=== PATIENT | female | born 1960 | race Caucasian/White ===

== ENCOUNTER → 2017-04-02 | Emergency (ER) | payer MEDICARE, MEDICAID ==
[~2017-04-02] VITALS: Ht 167.6 cm; Wt 79.4 kg
[~2017-04-02] MED LIST: ALBU6.7H INH; CEPH-572 PO; COU4T PO; DIPH14SO3 TP; FAMO-1 PO; GUAI1TBM19 PO; HYDR-3965 PO; HYDROmorphone 1 mg/ml syringe IV PRN; LISI40TA4 PO; NORCO10T PO; ONDA4TAB9 PO; PANT40TA39 PO; normal saline 1000ML IV soln IVB ONE; ondansetron/PF 4mg/2ml inj IV ONE
[2017-04-02 10:04] LABS: BASOPHILS % (AUTO) 0.3 % (0-1); EOSINOPHILS # (AUTO) 0.2 X10'3 (0-0.9); EOSINOPHILS % (AUTO) 2.8 % (0-6); HEMOGLOBIN 13.7 g/dl (12.0-16.0); LYMPHOCYTES # (AUTO) 2.1 X10'3 (1.1-4.8); LYMPHOCYTES % (AUTO) 27.6 % (21-51); MEAN CORPUSCULAR HEMOGLOBIN 29.5 PG (27.0-31.0); MEAN CORPUSCULAR HGB CONC 34.3 % (33.0-36.5); MEAN CORPUSCULAR VOLUME 85.9 FL (78-98); MEAN PLATELET VOLUME 7.8 FL (7.4-10.4); MONOCYTES # (AUTO) 0.6 X10'3 (0-0.9); MONOCYTES % (AUTO) 7.4 % (2-12); NEUTROPHILS # (AUTO) 4.8 X10'3 (1.8-7.7); NEUTROPHILS % (AUTO) 61.9 % (42-75); PLATELET COUNT 222 X10'3 (140-440); RED BLOOD COUNT 4.65 X10'6 (4.20-5.60); WHITE BLOOD COUNT 7.7 X10'3 (4.5-11.0)
[2017-04-02 10:10] LABS: CLARITY,URINE TURBID (Clear); COLOR,URINE STRAW (Yellow); GLUCOSE, URINE NEGATIVE (Neg); KETONES,URINE NEGATIVE (Neg); LEUKOCYTE ESTERASE ,URINE MODERATE (Neg); NITRITES, URINE NEGATIVE (Neg); OCCULT BLOOD,URINE TRACE-INTACT (Neg); PROTEIN,URINE NEGATIVE (Neg); UROBILINOGEN,URINE 0.2 E.U/dL (0.2-1.0)
[2017-04-02 10:14] LABS: UA COLLECTION TYPE CLN CATCH MIDSTREAM
[2017-04-02 10:18] LABS: SQUAMOUS EPITHELIAL CELL,UR MANY /LPF (FEW)
[2017-04-02 10:19] LABS: MUCUS STRANDS FEW /LPF (Neg); TRANSITIONAL EPI CELLS,URINE MODERATE /HPF
[2017-04-02 10:21] LABS: BACTERIA,URINE FEW /HPF (Neg); RBC,URINE 0-2 /HPF (0-2); WBC,URINE 0-4 /HPF (0-4)
[2017-04-02 10:26] LABS: INR 1.5 INR; PROTHROMBIN TIME 15.8 SECONDS (9.0-12.0)
[2017-04-02 10:27] LABS: ALANINE AMINOTRANSFERASE 35 U/L (12-78); ALBUMIN 3.8 G/DL (3.4-5.0); ALBUMIN/GLOBULIN RATIO 1.1 (1.1-1.5); ALKALINE PHOSPHATASE 112 IU/L (46-116); ANION GAP 7 (8-16); ASPARTATE AMINO TRANSFERASE 20 U/L (10-37); BILIRUBIN,TOTAL 0.8 MG/DL (0.1-1.0); BLOOD UREA NITROGEN 24 MG/DL (7-18); BUN/CREATININE RATIO 34.3 (6.6-38.0); CALCIUM 9.4 MG/DL (8.5-10.1); CHLORIDE 105 MMOL/L (99-107); GLUCOSE 100 MG/DL (70-104); POTASSIUM 4.7 MMOL/L (3.5-5.1); SODIUM 141 MMOL/L (135-145); TOTAL CARBON DIOXIDE 28.6 MMOL/L (24-32); TOTAL PROTEIN 7.3 G/DL (6.4-8.2); eGFR 87 ML/MIN
[2017-04-02 10:35] LABS: LIPASE 168 U/L (73-393)
[2017-04-02 11:37] VITALS: BP 144/86
== END | disposition home or self-care (01) ==
LOC: ER 09:29
DX: N39.0 Urinary tract infection, site not specified (principal); R51 Headache; G89.29 Other chronic pain; I10 Essential (primary) hypertension; J45.909 Unspecified asthma, uncomplicated; Z87.442 Personal history of urinary calculi; Z86.711 Personal history of pulmonary embolism; Z79.01 Long term (current) use of anticoagulants; Z79.899 Other long term (current) drug therapy
CPT/HCPCS: 36415; 74176; 80053; 81001; 83690; 85025; 85610; 96361; 96374; 96375; 99285; J1170; J2405; J7030

== ENCOUNTER 2017-05-13 11:38 | Emergency (ER) | payer MEDICARE, MEDICAID ==
[~2017-05-13] VITALS: Ht 160 cm; Wt 78.2 kg
[~2017-05-13 11:38] MED LIST changes: -CEPH-572 PO; -HYDR-3965 PO; -HYDROmorphone 1 mg/ml syringe IV PRN; -ONDA4TAB9 PO; -normal saline 1000ML IV soln IVB ONE; -ondansetron/PF 4mg/2ml inj IV ONE
[2017-05-13 12:57] LABS: PROTHROMBIN TIME 10.4 SECONDS (9.0-12.0)
[2017-05-13 14:21] LABS: BASOPHILS % (AUTO) 0.4 % (0-1); EOSINOPHILS # (AUTO) 0.2 X10'3 (0-0.9); EOSINOPHILS % (AUTO) 2.4 % (0-6); HEMATOCRIT 39.3 % (35.0-45.0); HEMOGLOBIN 13.9 g/dl (12.0-16.0); LYMPHOCYTES # (AUTO) 2.3 X10'3 (1.1-4.8); LYMPHOCYTES % (AUTO) 29.1 % (21-51); MEAN CORPUSCULAR HEMOGLOBIN 29.7 PG (27.0-31.0); MEAN CORPUSCULAR HGB CONC 35.5 % (33.0-36.5); MEAN CORPUSCULAR VOLUME 83.9 FL (78-98); MEAN PLATELET VOLUME 8.2 FL (7.4-10.4); MONOCYTES # (AUTO) 0.4 X10'3 (0-0.9); MONOCYTES % (AUTO) 5.3 % (2-12); NEUTROPHILS # (AUTO) 4.9 X10'3 (1.8-7.7); NEUTROPHILS % (AUTO) 62.8 % (42-75); PLATELET COUNT 242 X10'3 (140-440); RED BLOOD COUNT 4.68 X10'6 (4.20-5.60); RED CELL DISTRIBUTION WIDTH 13.2 % (11.5-14.5); WHITE BLOOD COUNT 7.7 X10'3 (4.5-11.0)
[2017-05-13 14:38] LABS: ALANINE AMINOTRANSFERASE 30 U/L (12-78); ALBUMIN/GLOBULIN RATIO 1.2 (1.1-1.5); ALKALINE PHOSPHATASE 92 IU/L (46-116); ANION GAP 9 (8-16); ASPARTATE AMINO TRANSFERASE 24 U/L (10-37); BILIRUBIN,TOTAL 0.3 MG/DL (0.1-1.0); BLOOD UREA NITROGEN 15 MG/DL (7-18); BUN/CREATININE RATIO 18.8 (6.6-38.0); CHLORIDE 105 MMOL/L (99-107); GLUCOSE 107 MG/DL (70-104); MAGNESIUM 1.9 MG/DL (1.5-2.4); POTASSIUM 4.3 MMOL/L (3.5-5.1); SODIUM 141 MMOL/L (135-145); TOTAL CARBON DIOXIDE 27.5 MMOL/L (24-32); TOTAL PROTEIN 7.3 G/DL (6.4-8.2); eGFR 74 ML/MIN
[2017-05-13] MEDS ORDERED: MORP-64 PO (15:11)
[2017-05-13] MEDS ORDERED: OMEP20CA10 PO (15:15)
[2017-05-13] MEDS ORDERED: AMOX500C2 PO (15:16)
[2017-05-13] MEDS ORDERED: CLAR500T PO (15:16)
[2017-05-13] MEDS ORDERED: LEVO125T PO (15:20)
[2017-05-13] MEDS ORDERED: iohexol 350MG/ML 100ml bottle IV ONE (15:25)
[2017-05-13 17:44] VITALS: BP 134/87
== END 2017-05-13 17:45 | disposition home or self-care (01) ==
LOC: ER 11:38
DX: R06.00 Dyspnea, unspecified (principal); R79.1 Abnormal coagulation profile; I10 Essential (primary) hypertension; J45.909 Unspecified asthma, uncomplicated; Z86.711 Personal history of pulmonary embolism; Z79.01 Long term (current) use of anticoagulants; Z91.018 Allergy to other foods; Z79.899 Other long term (current) drug therapy
CPT/HCPCS: 36415; 71275; 80053; 83735; 83880; 84484; 85025; 85610; 93005; 99285; J7030; Q9967

== ENCOUNTER 2017-07-12 13:06 | Emergency (ER) | payer MEDICARE, MEDICAID ==
[~2017-07-12 13:06] MED LIST changes: +AMOX500C2 PO; +CLAR500T PO; -DIPH14SO3 TP; -FAMO-1 PO; -GUAI1TBM19 PO; +LEVO125T PO; +MORP-64 PO; -NORCO10T PO; +OMEP20CA10 PO; -PANT40TA39 PO
== END 2017-07-12 14:14 | disposition left against medical advice (07) ==
LOC: ER 13:07
DX: D68.9 Coagulation defect, unspecified (principal); Z53.21 Procedure and treatment not carried out due to patient leaving prior to being seen by health care provider

== ENCOUNTER 2017-09-16 14:31 | Emergency (ER) | payer MEDICARE, MEDICAID ==
[~2017-09-16] VITALS: Ht 162.6 cm; Wt 72.4 kg
[2017-09-16 15:21] LABS: UA COLLECTION TYPE CLN CATCH MIDSTREAM
[2017-09-16 15:22] LABS: CLARITY,URINE SLIGHTLY CLOUDY (Clear); COLOR,URINE YELLOW (Yellow); GLUCOSE, URINE NEGATIVE (Neg); KETONES,URINE NEGATIVE (Neg); LEUKOCYTE ESTERASE ,URINE NEGATIVE (Neg); NITRITES, URINE NEGATIVE (Neg); OCCULT BLOOD,URINE NEGATIVE (Neg); PH,URINE 5.5 (4.8-8.0); PROTEIN,URINE NEGATIVE (Neg); UROBILINOGEN,URINE 0.2 E.U/dL (0.2-1.0)
[2017-09-16 15:32] LABS: BASOPHILS % (AUTO) 0.4 % (0-1); EOSINOPHILS # (AUTO) 0.2 X10'3 (0-0.9); EOSINOPHILS % (AUTO) 2.5 % (0-6); HEMATOCRIT 39.8 % (35.0-45.0); HEMOGLOBIN 14.1 g/dl (12.0-16.0); LYMPHOCYTES # (AUTO) 2.5 X10'3 (1.1-4.8); LYMPHOCYTES % (AUTO) 27.5 % (21-51); MEAN CORPUSCULAR HEMOGLOBIN 29.5 PG (27.0-31.0); MEAN CORPUSCULAR HGB CONC 35.5 % (33.0-36.5); MEAN CORPUSCULAR VOLUME 83.2 FL (78-98); MEAN PLATELET VOLUME 7.9 FL (7.4-10.4); MONOCYTES # (AUTO) 0.5 X10'3 (0-0.9); MONOCYTES % (AUTO) 6.1 % (2-12); NEUTROPHILS # (AUTO) 5.7 X10'3 (1.8-7.7); NEUTROPHILS % (AUTO) 63.5 % (42-75); PLATELET COUNT 252 X10'3 (140-440); RED BLOOD COUNT 4.78 X10'6 (4.20-5.60); RED CELL DISTRIBUTION WIDTH 13.2 % (11.5-14.5)
[2017-09-16 15:33] LABS: BACTERIA,URINE NONE SEEN /HPF (Neg); RBC,URINE NONE SEEN /HPF (0-2); SQUAMOUS EPITHELIAL CELL,UR FEW /LPF (FEW); WBC,URINE 0-4 /HPF (0-4)
[2017-09-16 15:34] LABS: MUCUS STRANDS MODERATE /LPF (Neg)
[2017-09-16 15:48] LABS: ALANINE AMINOTRANSFERASE 27 U/L (12-78); ALBUMIN 3.7 G/DL (3.4-5.0); ALKALINE PHOSPHATASE 88 IU/L (46-116); ANION GAP 7 (8-16); ASPARTATE AMINO TRANSFERASE 22 U/L (10-37); BILIRUBIN,TOTAL 0.2 MG/DL (0.1-1.0); BLOOD UREA NITROGEN 17 MG/DL (7-18); BUN/CREATININE RATIO 13.3 (6.6-38.0); CALCIUM 9.6 MG/DL (8.5-10.1); CHLORIDE 102 MMOL/L (99-107); CREATININE 1.28 MG/DL (0.40-0.90); GLUCOSE 107 MG/DL (70-104); POTASSIUM 4.1 MMOL/L (3.5-5.1); SODIUM 140 MMOL/L (135-145); TOTAL CARBON DIOXIDE 31.5 MMOL/L (24-32); TOTAL PROTEIN 7.3 G/DL (6.4-8.2); eGFR 43 ML/MIN
[2017-09-16 16:13] VITALS: BP 174/98
== END 2017-09-16 16:19 | disposition home or self-care (01) ==
LOC: ER 14:31
DX: R10.32 Left lower quadrant pain (principal); R59.1 Generalized enlarged lymph nodes; I10 Essential (primary) hypertension; J45.909 Unspecified asthma, uncomplicated; Z86.14 Personal history of Methicillin resistant Staphylococcus aureus infection; Z86.711 Personal history of pulmonary embolism; Z98.890 Other specified postprocedural states; Z79.899 Other long term (current) drug therapy
CPT/HCPCS: 36415; 74176; 80053; 81001; 85025; 99285

== ENCOUNTER 2018-10-05 11:29 | Emergency (ER) | payer MEDICARE, MEDICAID ==
[~2018-10-05] VITALS: Ht 160 cm; Wt 81.5 kg
[~2018-10-05 11:29] MED LIST changes: -OMEP20CA10 PO; +OMEP20CA11 PO
[2018-10-05 11:46] VITALS: BP 122/85
[2018-10-05 12:39] LABS: CLARITY,URINE CLEAR (Clear); COLOR,URINE YELLOW (Yellow); GLUCOSE, URINE NEGATIVE (Neg); KETONES,URINE NEGATIVE (Neg); LEUKOCYTE ESTERASE ,URINE NEGATIVE (Neg); NITRITES, URINE NEGATIVE (Neg); OCCULT BLOOD,URINE NEGATIVE (Neg); PROTEIN,URINE TRACE mg/dl (Neg)
[2018-10-05 12:41] LABS: UA COLLECTION TYPE CLN CATCH MIDSTREAM
[2018-10-05 12:55] LABS: MUCUS STRANDS MANY /LPF (Neg); SQUAMOUS EPITHELIAL CELL,UR MODERATE /LPF (FEW)
[2018-10-05 12:57] LABS: BACTERIA,URINE FEW /HPF (Neg); RBC,URINE 0-2 /HPF (0-2); WBC,URINE 0-4 /HPF (0-4)
[2018-10-05 13:14] LABS: BASOPHILS % (AUTO) 0.5 % (0-1); EOSINOPHILS # (AUTO) 0.2 X10'3 (0-0.9); EOSINOPHILS % (AUTO) 2.3 % (0-6); HEMATOCRIT 39.9 % (35.0-45.0); HEMOGLOBIN 13.9 g/dl (12.0-16.0); LYMPHOCYTES # (AUTO) 2.8 X10'3 (1.1-4.8); LYMPHOCYTES % (AUTO) 31.4 % (21-51); MEAN CORPUSCULAR HEMOGLOBIN 29.9 PG (27.0-31.0); MEAN CORPUSCULAR HGB CONC 34.7 g/dL (33.0-36.5); MEAN CORPUSCULAR VOLUME 86.2 FL (78-98); MEAN PLATELET VOLUME 8.5 FL (7.4-10.4); MONOCYTES # (AUTO) 0.8 X10'3 (0-0.9); MONOCYTES % (AUTO) 8.5 % (2-12); NEUTROPHILS # (AUTO) 5.1 X10'3 (1.8-7.7); NEUTROPHILS % (AUTO) 57.3 % (42-75); PLATELET COUNT 225 X10'3 (140-440); RED BLOOD COUNT 4.63 X10'6 (4.20-5.60); WHITE BLOOD COUNT 8.9 X10'3 (4.5-11.0)
[2018-10-05 13:19] LABS: ALANINE AMINOTRANSFERASE 31 U/L (12-78); ALBUMIN 3.9 G/DL (3.4-5.0); ALBUMIN/GLOBULIN RATIO 1.1 (1.1-1.5); ALKALINE PHOSPHATASE 94 IU/L (46-116); ANION GAP 6 (8-16); ASPARTATE AMINO TRANSFERASE 19 U/L (10-37); BILIRUBIN,TOTAL 0.4 MG/DL (0.1-1.0); BLOOD UREA NITROGEN 18 MG/DL (7-18); BUN/CREATININE RATIO 23.4 (6.6-38.0); CALCIUM 9.3 MG/DL (8.5-10.1); CHLORIDE 104 MMOL/L (99-107); CREATININE 0.77 MG/DL (0.40-0.90); GLUCOSE 93 MG/DL (70-104); LIPASE 316 U/L (73-393); POTASSIUM 3.8 MMOL/L (3.5-5.1); SODIUM 139 MMOL/L (135-145); TOTAL CARBON DIOXIDE 29.2 MMOL/L (24-32); TOTAL PROTEIN 7.3 G/DL (6.4-8.2); eGFR 77 ML/MIN
[2018-10-05] MEDS ORDERED: ACYC400T PO (13:40)
[2018-10-05] MEDS ORDERED: ONDA4TAB12 PO (13:40)
--- NOTE | 2018-10-05 13:52 | NUR ---
PT DISCHARGED BEFORE ASSESSMENT FULLY COMPLETE, MD WAS IN ROOM SPEAKING WITH PT
== END 2018-10-05 13:55 | disposition home or self-care (01) ==
LOC: ER 11:29
DX: B00.1 Herpesviral vesicular dermatitis (principal); R53.83 Other fatigue; R11.2 Nausea with vomiting, unspecified; I10 Essential (primary) hypertension; J45.909 Unspecified asthma, uncomplicated; F41.9 Anxiety disorder, unspecified; F32.9 Major depressive disorder, single episode, unspecified; Z98.890 Other specified postprocedural states; Z79.2 Long term (current) use of antibiotics; Z86.711 Personal history of pulmonary embolism; Z86.14 Personal history of Methicillin resistant Staphylococcus aureus infection; Z79.01 Long term (current) use of anticoagulants
CPT/HCPCS: 36415; 80053; 81001; 83690; 85025; 99283

== ENCOUNTER 2018-12-20 06:05 | Emergency (ER) | payer MEDICARE, MEDICAID ==
[~2018-12-20] VITALS: Ht 162.6 cm; Wt 81.8 kg
[~2018-12-20 06:05] MED LIST changes: -ALBU6.7H INH; +ALBU6.7H9 INH; -MORP-64 PO; +MORP-92 PO; +ONDA4TAB12 PO
[2018-12-20] MEDS ORDERED: dexamethasone 4mg tablet PO ONE (06:55)
[2018-12-20 07:16] VITALS: BP 146/96
== END 2018-12-20 07:18 | disposition home or self-care (01) ==
LOC: ER 06:05
DX: J02.9 Acute pharyngitis, unspecified (principal); I10 Essential (primary) hypertension; J45.909 Unspecified asthma, uncomplicated; Z86.711 Personal history of pulmonary embolism; Z86.14 Personal history of Methicillin resistant Staphylococcus aureus infection; Z98.890 Other specified postprocedural states; Z91.018 Allergy to other foods; Z79.899 Other long term (current) drug therapy; Z79.01 Long term (current) use of anticoagulants
CPT/HCPCS: 87081; 87880; 99283

== ENCOUNTER 2018-12-26 11:16 | Emergency (ER) | payer MEDICARE, MEDICAID ==
[~2018-12-26] VITALS: Ht 162.6 cm; Wt 80.4 kg
[2018-12-26 11:28] VITALS: BP 130/95
== END 2018-12-26 13:57 | disposition left against medical advice (07) ==
LOC: ER 11:17
DX: R51 Headache (principal); M54.2 Cervicalgia; Z53.21 Procedure and treatment not carried out due to patient leaving prior to being seen by health care provider

== ENCOUNTER 2019-12-31 10:39 | Emergency (ER) | payer MEDICARE, MEDICAID ==
[~2019-12-31] VITALS: Ht 162.6 cm; Wt 90.6 kg
[~2019-12-31 10:39] MED LIST changes: +CLAR-69 PO; -CLAR500T PO; -OMEP20CA11 PO; +OMEP20CA15 PO
[2019-12-31 11:22] VITALS: BP 190/109
--- NOTE | 2019-12-31 11:23 | NUR ---
Patient resting comfortably
[2019-12-31] MEDS ORDERED: CLOT21CR4 VG (12:05)
[2019-12-31] MEDS ORDERED: AMOX1TAB87 PO (12:05)
[2019-12-31] MEDS ORDERED: LORA10TA65 PO (12:05)
== END 2019-12-31 12:38 | disposition home or self-care (01) ==
LOC: ER 10:42
DX: T78.49XA Other allergy, initial encounter (principal); J01.00 Acute maxillary sinusitis, unspecified; R05 Cough; J02.9 Acute pharyngitis, unspecified; R51.9 Headache, unspecified; I10 Essential (primary) hypertension; J45.909 Unspecified asthma, uncomplicated; F41.9 Anxiety disorder, unspecified; F32.9 Major depressive disorder, single episode, unspecified; Z87.01 Personal history of pneumonia (recurrent); Z86.711 Personal history of pulmonary embolism; Z86.14 Personal history of Methicillin resistant Staphylococcus aureus infection; Z98.890 Other specified postprocedural states; Z72.89 Other problems related to lifestyle; Z79.2 Long term (current) use of antibiotics; Z79.899 Other long term (current) drug therapy; X08.8XXA Exposure to other specified smoke, fire and flames, initial encounter
CPT/HCPCS: 99283

== ENCOUNTER 2020-04-30 01:54 | Emergency (ER) | payer MEDICARE, MEDICAID ==
[~2020-04-30] VITALS: Ht 162.6 cm; Wt 87.3 kg
[~2020-04-30 01:54] MED LIST changes: +CLOT21CR4 VG; +LORA10TA65 PO
[2020-04-30] MEDS ORDERED: ketorolac tromethamine 15mg/ml inj. IM ONE (02:25)
[2020-04-30] MEDS ORDERED: dexamethasone 4mg tablet PO ONE (02:25)
[2020-04-30] MEDS ORDERED: PRED20TA PO (03:21)
[2020-04-30] MEDS ORDERED: DIAZ-351 PO (03:21)
[2020-04-30] MEDS ORDERED: METH-360 PO (03:21)
[2020-04-30 03:40] VITALS: BP 153/92
== END 2020-04-30 03:40 | disposition home or self-care (01) ==
LOC: ER 01:54
DX: S39.012A Strain of muscle, fascia and tendon of lower back, initial encounter (principal); M54.41 Lumbago with sciatica, right side; I10 Essential (primary) hypertension; J45.909 Unspecified asthma, uncomplicated; F41.9 Anxiety disorder, unspecified; F32.9 Major depressive disorder, single episode, unspecified; Z86.711 Personal history of pulmonary embolism; Z87.01 Personal history of pneumonia (recurrent); Z98.890 Other specified postprocedural states; Z72.89 Other problems related to lifestyle; Z79.2 Long term (current) use of antibiotics; Z79.899 Other long term (current) drug therapy; X58.XXXA Exposure to other specified factors, initial encounter; Y93.89 Activity, other specified; Y92.89 Other specified places as the place of occurrence of the external cause; Y99.8 Other external cause status
CPT/HCPCS: 96372; 99283; J1885

== ENCOUNTER → 2020-06-25 | Emergency (ER) | payer MEDICARE, MEDICAID ==
[~2020-06-25] MED LIST changes: +DIAZ-351 PO; +LISI40TA13 PO; -LISI40TA4 PO; +METH-360 PO
== END | disposition left against medical advice (07) ==
LOC: ER 18:38
DX: M54.9 Dorsalgia, unspecified (principal); Z53.21 Procedure and treatment not carried out due to patient leaving prior to being seen by health care provider

== ENCOUNTER 2020-08-03 11:52 | Emergency (ER) | payer MEDICARE, MEDICAID ==
[~2020-08-03] VITALS: Ht 162.6 cm; Wt 83.6 kg
[2020-08-03 12:10] VITALS: BP 169/102
[2020-08-03] MEDS ORDERED: ondansetron 4mg rapidly disintigrating tab PO ONE (12:45)
[2020-08-03 13:17] LABS: BASOPHILS % (AUTO) 0.6 % (0-1); EOSINOPHILS # (AUTO) 0.2 X10'3 (0-0.9); EOSINOPHILS % (AUTO) 2.6 % (0-6); HEMATOCRIT 43.5 % (35.0-45.0); HEMOGLOBIN 14.7 g/dl (12.0-16.0); LYMPHOCYTES % (AUTO) 30.5 % (21-51); MEAN CORPUSCULAR HEMOGLOBIN 29.6 PG (27.0-31.0); MEAN CORPUSCULAR HGB CONC 33.8 g/dL (33.0-36.5); MEAN CORPUSCULAR VOLUME 87.7 FL (78-98); MEAN PLATELET VOLUME 7.7 FL (7.4-10.4); MONOCYTES # (AUTO) 0.5 X10'3 (0-0.9); MONOCYTES % (AUTO) 6.9 % (2-12); NEUTROPHILS % (AUTO) 59.4 % (42-75); PLATELET COUNT 272 X10'3 (140-440); RED BLOOD COUNT 4.97 X10'6 (4.20-5.60); RED CELL DISTRIBUTION WIDTH 13.8 % (11.5-14.5); WHITE BLOOD COUNT 6.7 X10'3 (4.5-11.0)
[2020-08-03 13:32] LABS: ALANINE AMINOTRANSFERASE 40 U/L (12-78); ALBUMIN 4.1 G/DL (3.4-5.0); ALBUMIN/GLOBULIN RATIO 1.1 (1.1-1.5); ALKALINE PHOSPHATASE 112 IU/L (46-116); ANION GAP 6 (8-16); ASPARTATE AMINO TRANSFERASE 28 U/L (10-37); BILIRUBIN,TOTAL 0.6 MG/DL (0.1-1.0); BLOOD UREA NITROGEN 15 MG/DL (7-18); CALCIUM 9.6 MG/DL (8.5-10.1); CHLORIDE 105 MMOL/L (99-107); CREATININE 0.79 MG/DL (0.40-0.90); GLUCOSE 121 MG/DL (70-104); LIPASE 116 U/L (73-393); POTASSIUM 3.9 MMOL/L (3.5-5.1); SODIUM 140 MMOL/L (135-145); TOTAL CARBON DIOXIDE 28.8 MMOL/L (24-32); TOTAL PROTEIN 7.8 G/DL (6.4-8.2); eGFR 74 ML/MIN
[2020-08-03] MEDS ORDERED: acetaminophen 325mg tablet PO ONE (13:50)
== END 2020-08-03 14:57 | disposition home or self-care (01) ==
LOC: ER 11:54
DX: B34.9 Viral infection, unspecified (principal); Z20.822 Contact with and (suspected) exposure to COVID-19; R51.9 Headache, unspecified; R06.02 Shortness of breath; R11.2 Nausea with vomiting, unspecified; I10 Essential (primary) hypertension; J45.909 Unspecified asthma, uncomplicated; F41.9 Anxiety disorder, unspecified; F32.9 Major depressive disorder, single episode, unspecified; Z86.14 Personal history of Methicillin resistant Staphylococcus aureus infection; Z86.711 Personal history of pulmonary embolism; Z72.89 Other problems related to lifestyle; Z98.890 Other specified postprocedural states; Z79.899 Other long term (current) drug therapy
CPT/HCPCS: 36415; 80053; 83690; 85025; 87635; 93005; 99284; C9803

== ENCOUNTER 2020-09-01 16:39 | Emergency (ER) | payer MEDICARE, MEDICAID ==
[~2020-09-01] VITALS: Ht 160 cm; Wt 89.5 kg
[2020-09-01 17:04] LABS: BASOPHILS # (AUTO) 0.1 X10'3 (0-0.2); BASOPHILS % (AUTO) 0.7 % (0-1); EOSINOPHILS # (AUTO) 0.4 X10'3 (0-0.9); EOSINOPHILS % (AUTO) 5.7 % (0-6); HEMATOCRIT 43.4 % (35.0-45.0); HEMOGLOBIN 14.9 g/dl (12.0-16.0); LYMPHOCYTES % (AUTO) 27.6 % (21-51); MEAN CORPUSCULAR HEMOGLOBIN 30.1 PG (27.0-31.0); MEAN CORPUSCULAR HGB CONC 34.4 g/dL (33.0-36.5); MEAN CORPUSCULAR VOLUME 87.7 FL (78-98); MEAN PLATELET VOLUME 7.7 FL (7.4-10.4); MONOCYTES # (AUTO) 0.5 X10'3 (0-0.9); MONOCYTES % (AUTO) 6.7 % (2-12); NEUTROPHILS # (AUTO) 4.3 X10'3 (1.8-7.7); NEUTROPHILS % (AUTO) 59.3 % (42-75); PLATELET COUNT 232 X10'3 (140-440); RED BLOOD COUNT 4.95 X10'6 (4.20-5.60); RED CELL DISTRIBUTION WIDTH 13.6 % (11.5-14.5); WHITE BLOOD COUNT 7.2 X10'3 (4.5-11.0)
[2020-09-01 17:27] LABS: ALANINE AMINOTRANSFERASE 27 U/L (12-78); ALBUMIN 4.3 G/DL (3.4-5.0); ALBUMIN/GLOBULIN RATIO 1.2 (1.1-1.5); ALKALINE PHOSPHATASE 117 IU/L (46-116); ANION GAP 9 (8-16); ASPARTATE AMINO TRANSFERASE 22 U/L (10-37); BILIRUBIN,TOTAL 0.6 MG/DL (0.1-1.0); BLOOD UREA NITROGEN 18 MG/DL (7-18); BUN/CREATININE RATIO 23.7 (6.6-38.0); CALCIUM 9.7 MG/DL (8.5-10.1); CHLORIDE 103 MMOL/L (99-107); CREATININE 0.76 MG/DL (0.40-0.90); GLUCOSE 159 MG/DL (70-104); POTASSIUM 4.1 MMOL/L (3.5-5.1); SODIUM 140 MMOL/L (135-145); TOTAL CARBON DIOXIDE 28.1 MMOL/L (24-32); eGFR 78 ML/MIN
[2020-09-01] MEDS ORDERED: cloNIDine 0.1 mg tablet PO ONE (18:00)
[2020-09-01] MEDS ORDERED: lisinopril 10 MG tablet PO ONE (18:10)
[2020-09-01] MEDS ORDERED: HYDROchlorothiazide 25mg tablet PO ONE (18:10)
[2020-09-01 18:19] LABS: CLARITY,URINE CLOUDY (Clear); COLOR,URINE YELLOW (Yellow); GLUCOSE, URINE NEGATIVE (Neg); KETONES,URINE NEGATIVE (Neg); LEUKOCYTE ESTERASE ,URINE NEGATIVE (Neg); NITRITES, URINE NEGATIVE (Neg); OCCULT BLOOD,URINE TRACE-INTACT (Neg); PH,URINE 5.5 (4.8-8.0); PROTEIN,URINE TRACE mg/dl (Neg)
[2020-09-01] MEDS ORDERED: LISI-640 PO (18:23)
[2020-09-01 18:24] LABS: UA COLLECTION TYPE CLN CATCH MIDSTREAM
[2020-09-01 18:25] LABS: MUCUS STRANDS FEW /LPF (Neg); SQUAMOUS EPITHELIAL CELL,UR FEW /LPF (FEW)
[2020-09-01 18:26] LABS: CAL OXALATE CRYSTALS 4+ /HPF (NEGATIVE)
[2020-09-01 18:27] LABS: BACTERIA,URINE 2+ /HPF (Neg); RBC,URINE 0-2 /HPF (0-2)
[2020-09-01 18:46] VITALS: BP 195/127
== END 2020-09-01 18:48 | disposition home or self-care (01) ==
LOC: ER 16:40
DX: I10 Essential (primary) hypertension (principal); J45.909 Unspecified asthma, uncomplicated; F41.9 Anxiety disorder, unspecified; F32.9 Major depressive disorder, single episode, unspecified; Z91.018 Allergy to other foods; Z79.899 Other long term (current) drug therapy
CPT/HCPCS: 36415; 71045; 80053; 81001; 83880; 84484; 85025; 87088; 93005; 99285

== ENCOUNTER 2020-11-10 10:40 | Emergency (ER) | payer MEDICARE, MEDICAID ==
[~2020-11-10] VITALS: Ht 162.6 cm; Wt 83.2 kg
[~2020-11-10 10:40] MED LIST changes: +LISI-640 PO
[2020-11-10 11:25] VITALS: BP 147/80
== END 2020-11-10 12:45 | disposition home or self-care (01) ==
LOC: ER 10:41
DX: J02.9 Acute pharyngitis, unspecified (principal); Z20.822 Contact with and (suspected) exposure to COVID-19; R51.9 Headache, unspecified; R50.9 Fever, unspecified; R11.0 Nausea; R53.83 Other fatigue; R05 Cough; I10 Essential (primary) hypertension; J45.909 Unspecified asthma, uncomplicated; F41.9 Anxiety disorder, unspecified; F32.9 Major depressive disorder, single episode, unspecified; Z87.01 Personal history of pneumonia (recurrent); Z86.711 Personal history of pulmonary embolism; Z98.890 Other specified postprocedural states; Z72.89 Other problems related to lifestyle; Z79.2 Long term (current) use of antibiotics; Z79.899 Other long term (current) drug therapy
CPT/HCPCS: 87635; 99283; C9803

== ENCOUNTER 2021-01-13 18:34 | Emergency (ER) | payer MEDICARE, MEDICAID ==
[~2021-01-13] VITALS: Ht 162.6 cm; Wt 83.6 kg
[2021-01-13 18:45] VITALS: BP 138/106
--- NOTE | 2021-01-13 19:56 | NUR ---
Pt stated "I think I'm going to leave because I only came because I lost my taste and smell. I will go thru the drive thru testing site by [place] in the morning." Pt then walked away. RN notified.
== END 2021-01-13 20:05 | disposition left against medical advice (07) ==
LOC: ER 18:34
DX: R05.9 Cough, unspecified (principal); Z53.21 Procedure and treatment not carried out due to patient leaving prior to being seen by health care provider

== ENCOUNTER 2021-06-01 15:17 | Emergency (ER) | payer MEDICARE, MEDICAID ==
[~2021-06-01] VITALS: Ht 160 cm; Wt 86.4 kg
[2021-06-01] MEDS ORDERED: hydrALAZINE 20mg/ml inj. IV ONE (15:35)
[2021-06-01] MEDS ORDERED: normal saline 1000ml 1,000 ML IV ONE (15:35)
[2021-06-01] MEDS ORDERED: metoclopramide 5 mg/ml inj IV ONE (15:35)
[2021-06-01 16:00] LABS: BASOPHILS % (AUTO) 0.6 % (0-1); EOSINOPHILS # (AUTO) 0.3 X10'3 (0-0.9); HEMATOCRIT 40.7 % (35.0-45.0); HEMOGLOBIN 13.9 g/dl (12.0-16.0); LYMPHOCYTES # (AUTO) 2.8 X10'3 (1.1-4.8); LYMPHOCYTES % (AUTO) 33.2 % (21-51); MEAN CORPUSCULAR HEMOGLOBIN 29.8 PG (27.0-31.0); MEAN CORPUSCULAR HGB CONC 34.2 g/dL (33.0-36.5); MEAN CORPUSCULAR VOLUME 86.9 FL (78-98); MEAN PLATELET VOLUME 7.7 FL (7.4-10.4); MONOCYTES # (AUTO) 0.6 X10'3 (0-0.9); MONOCYTES % (AUTO) 7.1 % (2-12); NEUTROPHILS # (AUTO) 4.7 X10'3 (1.8-7.7); NEUTROPHILS % (AUTO) 56.1 % (42-75); PLATELET COUNT 254 X10'3 (140-440); RED BLOOD COUNT 4.68 X10'6 (4.20-5.60); RED CELL DISTRIBUTION WIDTH 13.8 % (11.5-14.5); WHITE BLOOD COUNT 8.4 X10'3 (4.5-11.0)
[2021-06-01] MEDS ORDERED: ketorolac tromethamine 15mg/ml inj. IV ONE (16:15)
[2021-06-01] MEDS ORDERED: acetaminophen 325mg tablet PO ONE (16:15)
[2021-06-01 16:20] LABS: ALANINE AMINOTRANSFERASE 58 U/L (12-78); ALBUMIN 4.6 G/DL (3.4-5.0); ALBUMIN/GLOBULIN RATIO 1.3 (1.1-1.5); ALKALINE PHOSPHATASE 106 IU/L (46-116); ANION GAP 15 (8-16); ASPARTATE AMINO TRANSFERASE 36 U/L (10-37); BILIRUBIN,TOTAL 0.9 MG/DL (0.1-1.0); BLOOD UREA NITROGEN 17 MG/DL (7-18); BUN/CREATININE RATIO 18.3 (6.6-38.0); CALCIUM 9.6 MG/DL (8.5-10.1); CHLORIDE 102 MMOL/L (99-107); CREATININE 0.93 MG/DL (0.40-0.90); GLUCOSE 135 MG/DL (70-104); POTASSIUM 4.4 MMOL/L (3.5-5.1); SODIUM 141 MMOL/L (135-145); TOTAL CARBON DIOXIDE 24.4 MMOL/L (24-32); TOTAL PROTEIN 8.2 G/DL (6.4-8.2); eGFR 61 ML/MIN
[2021-06-01 16:49] LABS: CLARITY,URINE CLEAR (Clear); COLOR,URINE YELLOW (Yellow); GLUCOSE, URINE NEGATIVE (Neg); KETONES,URINE NEGATIVE (Neg); LEUKOCYTE ESTERASE ,URINE NEGATIVE (Neg); NITRITES, URINE NEGATIVE (Neg); OCCULT BLOOD,URINE NEGATIVE (Neg); PROTEIN,URINE NEGATIVE (Neg); UROBILINOGEN,URINE 0.2 E.U/dL (0.2-1.0)
[2021-06-01 16:52] LABS: UA COLLECTION TYPE VOIDED
[2021-06-01 17:41] VITALS: BP 166/89
== END 2021-06-01 17:43 | disposition home or self-care (01) ==
LOC: ER 15:18
DX: R11.0 Nausea (principal); R07.89 Other chest pain; I10 Essential (primary) hypertension; H57.11 Ocular pain, right eye; R51.9 Headache, unspecified; J45.909 Unspecified asthma, uncomplicated; F41.9 Anxiety disorder, unspecified; F32.A Depression, unspecified; Z87.01 Personal history of pneumonia (recurrent); Z86.711 Personal history of pulmonary embolism; Z86.14 Personal history of Methicillin resistant Staphylococcus aureus infection; Z98.890 Other specified postprocedural states; Z72.89 Other problems related to lifestyle; Z79.2 Long term (current) use of antibiotics; Z79.899 Other long term (current) drug therapy
CPT/HCPCS: 36415; 70450; 71045; 80053; 81003; 84145; 84439; 84443; 84484; 85025; 85651; 93005; 96361; 96374; 96375; 99285; J0360; J1885; J2765; J7030

== ENCOUNTER 2022-05-26 17:34 | Emergency (ER) | payer MEDICARE, MEDICAID ==
[~2022-05-26] VITALS: Ht 162.6 cm; Wt 85.9 kg
[~2022-05-26 17:34] MED LIST changes: +ALBU6.7H14 INH; -ALBU6.7H9 INH
[2022-05-26 18:26] LABS: CLARITY,URINE SLIGHTLY CLOUDY (Clear); COLOR,URINE YELLOW (Yellow); GLUCOSE, URINE >=1000 mg/dl (Neg); KETONES,URINE NEGATIVE (Neg); LEUKOCYTE ESTERASE ,URINE NEGATIVE (Neg); NITRITES, URINE NEGATIVE (Neg); OCCULT BLOOD,URINE NEGATIVE (Neg); PH,URINE 6.5 (4.8-8.0); PROTEIN,URINE NEGATIVE (Neg); UROBILINOGEN,URINE 0.2 E.U/dL (0.2-1.0)
[2022-05-26 18:36] LABS: BASOPHILS % (AUTO) 0.5 % (0-1); EOSINOPHILS # (AUTO) 0.2 X10'3 (0-0.9); HEMATOCRIT 36.1 % (35.0-45.0); HEMOGLOBIN 12.4 g/dl (12.0-16.0); LYMPHOCYTES # (AUTO) 2.8 X10'3 (1.1-4.8); LYMPHOCYTES % (AUTO) 30.5 % (21-51); MEAN CORPUSCULAR HEMOGLOBIN 29.8 PG (27.0-31.0); MEAN CORPUSCULAR HGB CONC 34.2 g/dL (33.0-36.5); MEAN PLATELET VOLUME 8.4 FL (7.4-10.4); MONOCYTES # (AUTO) 0.7 X10'3 (0-0.9); MONOCYTES % (AUTO) 8.1 % (2-12); NEUTROPHILS # (AUTO) 5.4 X10'3 (1.8-7.7); NEUTROPHILS % (AUTO) 58.9 % (42-75); PLATELET COUNT 192 X10'3 (140-440); RED BLOOD COUNT 4.15 X10'6 (4.20-5.60); RED CELL DISTRIBUTION WIDTH 12.7 % (11.5-14.5); WHITE BLOOD COUNT 9.1 X10'3 (4.5-11.0)
[2022-05-26 18:38] LABS: UA COLLECTION TYPE CLN CATCH MIDSTREAM
[2022-05-26 18:39] LABS: MUCUS STRANDS MODERATE /LPF (Neg); RBC,URINE 0-2 /HPF (0-2); SQUAMOUS EPITHELIAL CELL,UR FEW /LPF (FEW)
[2022-05-26 18:40] LABS: BACTERIA,URINE 1+ /HPF (Neg); TRANSITIONAL EPI CELLS,URINE FEW /HPF; WBC CLUMPS,URINE FEW /HPF (NEGATIVE)
[2022-05-26 18:53] LABS: ALANINE AMINOTRANSFERASE 25 U/L (12-78); ALBUMIN 3.8 G/DL (3.4-5.0); ALBUMIN/GLOBULIN RATIO 1.1 (1.1-1.5); ALKALINE PHOSPHATASE 81 IU/L (46-116); ANION GAP 3 (8-16); ASPARTATE AMINO TRANSFERASE 13 U/L (10-37); BILIRUBIN,TOTAL 0.4 MG/DL (0.1-1.0); BLOOD UREA NITROGEN 16 MG/DL (7-18); BUN/CREATININE RATIO 19.3 (6.6-38.0); CALCIUM 9.9 MG/DL (8.5-10.1); CHLORIDE 105 MMOL/L (99-107); CREATININE 0.83 MG/DL (0.40-0.90); GLUCOSE 247 MG/DL (70-104); LIPASE 118 U/L (73-393); POTASSIUM 4.4 MMOL/L (3.5-5.1); SODIUM 140 MMOL/L (135-145); TOTAL CARBON DIOXIDE 31.9 MMOL/L (24-32); TOTAL PROTEIN 7.4 G/DL (6.4-8.2); eGFR 70 ML/MIN
[2022-05-26 18:56] VITALS: BP 177/96
[2022-05-26] MEDS ORDERED: SULF1TAB49 PO (19:47)
== END 2022-05-26 19:58 | disposition home or self-care (01) ==
LOC: ER 17:34
DX: N39.0 Urinary tract infection, site not specified (principal); M54.41 Lumbago with sciatica, right side; I10 Essential (primary) hypertension; E03.9 Hypothyroidism, unspecified; F31.9 Bipolar disorder, unspecified; Z86.14 Personal history of Methicillin resistant Staphylococcus aureus infection; Z91.010 Allergy to peanuts; Z79.899 Other long term (current) drug therapy; Z79.1 Long term (current) use of non-steroidal anti-inflammatories (NSAID); Z79.2 Long term (current) use of antibiotics
CPT/HCPCS: 36415; 80053; 81001; 83690; 85025; 85610; 86885; 86900; 86901; 87077; 87088; 87186; 99283

== ENCOUNTER 2023-06-25 15:00 | Emergency (ER) | payer MEDICARE, MEDICAID ==
[~2023-06-25] VITALS: Ht 172.7 cm; Wt 86.4 kg
[2023-06-25 15:03] VITALS: BP 177/71; PULSE 74; RESP 18; TEMP 99.1; O2SAT 97
== END 2023-06-25 16:34 | disposition home or self-care (01) ==
LOC: ER 15:00
DX: S80.02XA Contusion of left knee, initial encounter (principal); S63.502A Unspecified sprain of left wrist, initial encounter; X58.XXXA Exposure to other specified factors, initial encounter; Y93.89 Activity, other specified; Y92.89 Other specified places as the place of occurrence of the external cause; Y99.8 Other external cause status
CPT/HCPCS: 29125; 73110; 73564; 99284

== ENCOUNTER 2024-08-31 11:37 | Emergency (ER) | payer MEDICARE, MEDICAID ==
[~2024-08-31] VITALS: Ht 162.6 cm; Wt 77.3 kg
[~2024-08-31 11:37] MED LIST changes: +ONDA-243 PO; -ONDA4TAB12 PO
--- NOTE | 2024-08-31 11:53 | ELECTROCARDIOGRAPH REPORT ---
[facility] Test Date: 2024-08-31 Test Time: 11:49:39 Pat Name: RENAN BARBOSA Department: [facility] Patient ID: [facility]-[id number] Room: Gender: F [employer]: : [id number] Requested By: PADMINI OCHOA Order Number: [id number] Reading MD: Measurements Intervals [place] Rate: 58 P: 49 NV: 180 QRS: -14 QRSD: 89 T: 52 QT: 417 QTc: 410 Interpretive Statements Sinus bradycardia Consider anterior infarct Baseline wander in lead(s) II,III,aVF Please click the below link to view image of tracing.
[2024-08-31 12:12] LABS: BASOPHILS % (AUTO) 0.8 % (0-1); EOSINOPHILS # (AUTO) 0.2 X10'3 (0-0.9); EOSINOPHILS % (AUTO) 4.6 % (0-6); HEMATOCRIT 40.6 % (35.0-45.0); HEMOGLOBIN 14.1 g/dl (12.0-16.0); LYMPHOCYTES # (AUTO) 1.7 X10'3 (1.1-4.8); LYMPHOCYTES % (AUTO) 31.9 % (21-51); MEAN CORPUSCULAR HEMOGLOBIN 29.5 PG (27.0-31.0); MEAN CORPUSCULAR HGB CONC 34.6 g/dL (33.0-36.5); MEAN CORPUSCULAR VOLUME 85.1 FL (78-98); MEAN PLATELET VOLUME 8.3 FL (7.4-10.4); MONOCYTES # (AUTO) 0.6 X10'3 (0-0.9); MONOCYTES % (AUTO) 10.9 % (2-12); NEUTROPHILS # (AUTO) 2.8 X10'3 (1.8-7.7); NEUTROPHILS % (AUTO) 51.8 % (42-75); PLATELET COUNT 212 X10'3 (140-440); RED BLOOD COUNT 4.76 X10'6 (4.20-5.60); RED CELL DISTRIBUTION WIDTH 13.4 % (11.5-14.5); WHITE BLOOD COUNT 5.4 X10'3 (4.5-11.0)
[2024-08-31 12:15] VITALS: TEMP 98.4
--- NOTE | 2024-08-31 12:26 | RADIOLOGY REPORT ---
CHEST RADIOGRAPH Indication: CP Technique: Single frontal view of the chest was obtained COMPARISON: CHEST,SINGLE VIEW on DOS: 06/01/21, CHEST,SINGLE VIEW on DOS: 09/01/20 FINDINGS: Lines and Tubes: None Lungs: Few linear airspace opacities at the left lower lung zone, similar to prior. Pleura: No definite pleural effusion or pneumothorax. Cardiomediastinal contours: Unremarkable Bones: Similar curvilinear opacity in the left midlung zone which may be related to sclerosis of the left anterior 3rd rib. Osseous degenerative changes. IMPRESSION: 1. No acute cardiopulmonary abnormality. 2. Similar left basilar subsegmental scarring or atelectasis.
[2024-08-31 12:33] LABS: ALBUMIN 3.9 G/DL (3.4-5.0); ANION GAP 8 (8-16); BLOOD UREA NITROGEN 17 MG/DL (7-18); BUN/CREATININE RATIO 19.8 (10.0-20.0); CHLORIDE 108 MMOL/L (99-107); CREATININE 0.86 MG/DL (0.40-0.90); GLUCOSE 116 MG/DL (70-104); PRO BRAIN NATRIURETIC PEPTIDE 32 PG/ML (0-125); SODIUM 142 MMOL/L (135-145); TOTAL CARBON DIOXIDE 25.8 MMOL/L (24-32); eCRCL 57 ML/MIN; eGFR 66 ML/MIN
[2024-08-31 12:36] LABS: POTASSIUM 4.7 MMOL/L (3.5-5.1)
--- NOTE | 2024-08-31 13:30 | Physician Documentation ---
History of Present Illness ~ Chief Complaint: Breast pain Stated Complaint: MRSA/PNEUMONIA RULE OUT Time Seen by MD: 12:36 Primary Medical Doctor: SUZANNE VARGAS Source: patient (15) HPI Patient comes in for evaluation of a rash under her left breast. She has been undergoing radiation therapy for about three weeks for breast cancer, and reports that since about five days ago she has had irritation under the left breast. She was not sure if she had scratched it, or if her puppy had given her an infection. she has had MRSA pneumonia before and was concerned about infection. She reports that this morning she noted some green drainage and so she was concerned and wanted to come in. She has been feeling unwell with the radiation, but does not know if she has had a fever, as she did not take her temperature. She is afebrile today and did not take any antipyretics prior to arrival. Tetanus within 5 Years?: No Allergies: Uncoded Allergies: NUTS (Allergy, Severe, swelling hives, 07/18/13) Active Prescriptions See Medication Reconciliation Form. Medication Reconciliation Scheduled Albuterol Sulfate (Proventil Hfa), 2 PUFFS INH Q6H Amoxicillin Trihydrate (Amoxicillin), 2 CAP PO BID, (Reported) Clarithromycin (Clarithromycin), 1 TABLET PO BID, (Reported) Clotrimazole (Gyne-Lotrimin), 1 APPLICATOR VG HS Levothyroxine Sodium (Synthroid), 1 TAB PO DAILY, (Reported) Lisinopril* (Lisinopril*), 40 MG PO DAILY, (Reported) Lisinopril/Hydrochlorothiazide (Zestoretic 20-12.5 Tablet), 1 TAB PO DAILY Loratadine (Claritin), 1 TAB PO DAILY Methocarbamol (Robaxin-750), 1 TAB PO Q8H Morphine Sulfate (Morphine Sulfate Er), 15 MG PO BID, (Reported) Omeprazole (Omeprazole), 1 CAP PO BID, (Reported) Warfarin Sodium* (Coumadin*), 8 MG PO DAILY, (Reported) Scheduled PRN Diazepam (Diazepam), 5 MG PO q8h prn PRN for muscle spasms ONDANSETRON ODT 4mg tablet (Ondansetron Odt), 1 TABLET PO Q6H PRN for nausea/vomiting Past Medical History Past Medical History: Hypertension, Asthma, Bronchitis, Pneumonia, Pulmonary Embolism, Diabetes, Thyroid (unspecified), MRSA Abscess, Breast Cancer, Anxiety, Depression Past Surgical History: orthopedic surgeries, other Other Past Surgical History: lung surgery Smoking Status: Never smoker Alcohol Use: Occasionally Drug Use: none Lives with: Other Lives In: Home Occupation: employed Review of Systems All Other Systems at this time: Reviewed and Negative Physical Exam Vital Signs: Temperature: 98.4, Source: Temporal, Heart Rate: 61, Respiratory Rate: 15, BP: 159/74, Pulse Oximetry: 96, Weight: 77.270 Oxygen Flow Rate: 0 Physical Exam General: Pt is awake, alert, oriented x4 in no acute distress and well appearing. Head: Normocephalic and atraumatic. Eyes: Conjunctiva normal. ENT: Mucous membranes moist. Neck: Supple. Extremities: Within normal limits without cyanosis, clubbing, or edema. Skin: [place], warm and dry. In the left inframammary fold the patient has a bit of skin breakdown and some moisture, without any erythema to suggest cellulitis. There is no wound per se, from which I would expect any purulent drainage. There was no evidence for abscess. Neuro: Cranial nerves II-XII grossly intact. The gait is normal. Progress Results/Orders Results/Orders Orders - PADMINI OCHOA MD Chest,Single View (08/31/24 11:55) Monitor (08/31/24 11:43) Saline Lock (08/31/24 11:43) Oxygen (08/31/24 11:43) Hs Troponin I W Calculations (08/31/24 13:43) Hs Troponin I W Calculations (08/31/24 14:43) Silver Sulfadiazine Cream (Silvadene Cre (08/31/24 13:15) Completed Orders - PADMINI OCHOA MD Chest,Single View (08/31/24 11:55) Cbc/Diff (08/31/24 11:43) BMP (08/31/24 11:43) PBNP (08/31/24 11:43) Electrocardiogram (08/31/24 11:43) Hs Troponin I W Calculations (08/31/24 11:43) Vital Signs 08/31/24 08/31/24 11:37 12:15 Temp 98.4 98.4 Pulse 63 61 Resp 14 15 B/P (MAP) 171/85 159/74 (102) Pulse Ox 98 96 O2 Flow Rate 0 0 Laboratory Tests Test 08/31/24 11:49 08/31/24 12:34 White Blood Count 5.4 Red Blood Count 4.76 Hemoglobin 14.1 Hematocrit 40.6 Mean Corpuscular Volume 85.1 Mean Corpuscular Hemoglobin 29.5 Mean Corpuscular Hemoglobin Concent 34.6 Red Cell Distribution Width 13.4 Platelet Count 212 Mean Platelet Volume 8.3 Neutrophils (%) (Auto) 51.8 Lymphocytes (%) (Auto) 31.9 Monocytes (%) (Auto) 10.9 Eosinophils (%) (Auto) 4.6 Basophils (%) (Auto) 0.8 Neutrophils # (Auto) 2.8 Lymphocytes # (Auto) 1.7 Monocytes # (Auto) 0.6 Eosinophils # (Auto) 0.2 Basophils # (Auto) 0.0 CBC Comment Sodium Level 142 Potassium Level 4.7 Chloride Level 108 H Carbon Dioxide Level 25.8 Anion Gap 8 Blood Urea Nitrogen 17 Creatinine 0.86 Estimated GFR/1.73 m2 66 BUN/Creatinine Ratio 19.8 Glucose Level 116 H Calcium Level 9.0 Troponin I High Sensitivity 10 Pro-B-Type Natriuretic Peptide 32 Albumin 3.9 Chemistry Comments Lactic Acid Level 1.0 C-Reactive Protein 0.05 Medical Decision Making Additional Comment Patient presenting with some skin irritation and very faint breakdown in the left inframammary fold, possibly secondary to radiation dermatitis. It does not appear consistent with cellulitis at this time, and there is no drainage of any kind and no evidence for cellulitis. Patient was treated with Silvadene cream, sent home with the rest of it and will use it at home, and is instructed to make sure that her radiation oncologist is aware when she sees them tomorrow. She understands to return to the ER for any worsening of her condition or any other concerns. Departure Time of Disposition: 13:29 Disposition: 01 HOME / SELF CARE / HOMELESS Impression: Primary Impression: Radiation dermatitis Condition: Stable Discharge Instructions: General Discharge Instructions Additional Instructions: Make sure to show your skin irritation to your radiation oncologist when you see them tomorrow. You may use the Silvadene cream, which feels good from the refrigerator, daily after washing and thoroughly drying the skin. Return to the emergency department if redness, drainage, fever, or any other concerns. Referrals: NO PRIMARY CARE PROVIDER (PCP) Education Educated: Patient Educated regarding: diagnosis, treatment Signature Scribe Signature: Attestation: PADMINI OCHOA MD Aug 31, 2024 13:30
[2024-08-31] MEDS: silver sulfadiazine cream 400gm jar TP SCH (14:10)
[2024-08-31 14:28] VITALS: BP 156/70; PULSE 62; RESP 14; O2SAT 98
== END 2024-08-31 14:12 | disposition home or self-care (01) ==
LOC: ER 11:38
DX: L59.8 Other specified disorders of the skin and subcutaneous tissue related to radiation (principal); E11.9 Type 2 diabetes mellitus without complications; F41.9 Anxiety disorder, unspecified; I10 Essential (primary) hypertension; J45.909 Unspecified asthma, uncomplicated; R06.02 Shortness of breath; Z85.3 Personal history of malignant neoplasm of breast; Y84.2 Radiological procedure and radiotherapy as the cause of abnormal reaction of the patient, or of later complication, without mention of misadventure at the time of the procedure
CPT/HCPCS: 36415; 71045; 80048; 83605; 83880; 84145; 84484; 85025; 86140; 87040; 93005; 99285

== ENCOUNTER 2024-11-01 10:51 | Emergency (ER) | payer MEDICARE, MEDICAID ==
[~2024-11-01] VITALS: Ht 160 cm; Wt 80.5 kg
[~2024-11-01 10:51] MED LIST changes: -LISI40TA13 PO; +LISI40TA20 PO
[2024-11-01 10:55] VITALS: BP 181/98; PULSE 89; RESP 16; TEMP 97.7; O2SAT 96
--- NOTE | 2024-11-01 11:06 | Physician Documentation ---
History of Present Illness ~ Chief Complaint: Ankle pain Stated Complaint: L ANKLE PAIN Time Seen by MD: 13:36 OK to notify your PCP?: Yes Primary Medical Doctor: SUZANNE VARGAS Source: patient Mode of Arrival: POV Exam Limitations: no limitations HPI HPI being completed as part of her medical screening exam in triage: This is a 64-year-old female who presented through the emergency department secondary to left ankle pain for the past two weeks. States she had a fall two weeks ago and has had continued pain since then. Past medical history significant for provoked DVT. No longer on oral anticoagulation. She is able to ambulate with a limp. Requesting x-ray. Tetanus witin 5 years: No Medication Reconciliation Allergies: Uncoded Allergies: NUTS (Allergy, Severe, swelling hives, 07/18/13) Scheduled Albuterol Sulfate (Proventil Hfa), 2 PUFFS INH Q6H Amoxicillin Trihydrate (Amoxicillin), 2 CAP PO BID, (Reported) Clarithromycin (Clarithromycin), 1 TABLET PO BID, (Reported) Clotrimazole (Gyne-Lotrimin), 1 APPLICATOR VG HS Levothyroxine Sodium (Synthroid), 1 TAB PO DAILY, (Reported) Lisinopril* (Lisinopril*), 40 MG PO DAILY, (Reported) Lisinopril/Hydrochlorothiazide (Zestoretic 20-12.5 Tablet), 1 TAB PO DAILY Loratadine (Claritin), 1 TAB PO DAILY Methocarbamol (Robaxin-750), 1 TAB PO Q8H Morphine Sulfate (Morphine Sulfate Er), 15 MG PO BID, (Reported) Omeprazole (Omeprazole), 1 CAP PO BID, (Reported) Warfarin Sodium* (Coumadin*), 8 MG PO DAILY, (Reported) Scheduled PRN Diazepam (Diazepam), 5 MG PO q8h prn PRN for muscle spasms ONDANSETRON ODT 4mg tablet (Ondansetron Odt), 1 TABLET PO Q6H PRN for nausea/vomiting Past Medical History Past Medical History: Hypertension, Asthma, Bronchitis, Pneumonia, Pulmonary Embolism, Diabetes, Thyroid (unspecified), MRSA Abscess, Breast Cancer, Anxiety, Depression Past Surgical History: orthopedic surgeries, other Other Past Surgical History: lung surgery Alcohol Use: Occasionally Drug Use: none Lives with: Other Lives In: Home Occupation: employed Physical Exam Vital Signs: RN Vital Signs have been reviewed: Yes, Temperature: 97.7, Source: Temporal, Heart Rate: 89, Respiratory Rate: 16, BP: 181/98, Pulse Oximetry: 96, Weight: 80.500 Oxygen Flow Rate: 0 Pulse Oximetry Reflects: adequate oxygenation Physical Exam Medical screening exam General: Awake, alert, oriented. No apparent distress Extremities: No swelling to the left ankle. Obvious deformity. CMS is intact. Neurologic: Alert and oriented x4. Nonfocal Psychiatric: Normal mood and affect. Skin: Normal color. Warm and dry. There is a scab to the lateral malleolus. Progress Results/Orders Results/Orders Orders - DANE ROMEO NP Ortho Orders (11/01/24 ) Completed Orders - DANE ROMEO NP Ketorolac Trometh 30mg/Ml Vial (Toradol (11/01/24 14:35) Vital Signs 11/01/24 10:55 Temp 97.7 Pulse 89 Resp 16 B/P (MAP) 181/98 Pulse Ox 96 O2 Flow Rate 0 Medical Decision Making Findings Patient being seen in triage as part of her medical screening exam. Complains of two week history of left ankle pain and swelling after a injury. We will order x-rays in triage. X-ray per my interpretation showed no signs of acute fracture. However I did provide patient with a velcro splint to help with support as she heals from her ankle sprain Departure Disposition: 01 HOME / SELF CARE / HOMELESS Impression: Primary Impression: Sprain of ankle Condition: Stable Discharge Instructions: Ankle Sprain Referrals: NO PRIMARY CARE PROVIDER (PCP) Signature Scribe Signature: j Attestation: Scribed for Dane Romeo Inspector Of Weights And Measures by Dane Hackett NP . 11/01/24 21:25 LADY ALARCON NP Nov 01, 2024 11:06 DANE ROMEO NP Nov 01, 2024 14:26
--- NOTE | 2024-11-01 11:54 | RADIOLOGY REPORT ---
DI ANKLE, COMPLETE(3VW MIN), INDICATION: ANKLE PAIN TECHNICAL DATA:Frontal , oblique and lateral views were obtained of the right ankle. COMPARISON: None FINDINGS: No fracture is identified. Joint spaces are maintained. Alignment is anatomic. Soft tissues are wit hin normal limit. IMPRESSION: No acute fracture or dislocation of the right ankle.
[2024-11-01] MEDS ORDERED: ketorolac trometh 30MG/ML vial 30 MG/ML VIAL IM ONE (14:35)
== END 2024-11-01 17:58 | disposition left against medical advice (07) ==
LOC: ER 10:52
DX: S93.492A Sprain of other ligament of left ankle, initial encounter (principal); J45.909 Unspecified asthma, uncomplicated; I10 Essential (primary) hypertension; F41.9 Anxiety disorder, unspecified; F32.A Depression, unspecified; E11.9 Type 2 diabetes mellitus without complications; Z86.711 Personal history of pulmonary embolism; Z85.3 Personal history of malignant neoplasm of breast; Z79.899 Other long term (current) drug therapy; Z72.89 Other problems related to lifestyle; W18.39XA Other fall on same level, initial encounter; Y93.89 Activity, other specified; Y92.89 Other specified places as the place of occurrence of the external cause; Y99.8 Other external cause status
CPT/HCPCS: 29515; 73610; 99284